=== PATIENT | female | born 1980 | race Hispanic/Latino ===

== ENCOUNTER 2019-12-09 13:15 | Emergency (ER) | payer BC, OTHER ==
[2019-12-09] MEDS ORDERED: NA CHLORIDE 0.9% 2,000 ML ONE (13:34)
[2019-12-09] MEDS ORDERED: NA CHLORIDE 0.9% 1,000 ML ONE ×4 (13:34→16:54)
[2019-12-09 14:10] LABS: Absolute Lymphocytes (CBC) 1.8 K/uL (0.7-4.9); Basophils % 0.3 % (0-1.3); Hematocrit 25.4 % (36.0-45.0); Lymphocytes % 21.4 % (15.3-44.8); MPV 8.7 fL (7.6-11.3)
[2019-12-09 14:31] LABS: Urine Blood NEGATIVE (NEG); Urine Glucose NEGATIVE (NEG); Urine Protein NEGATIVE (NEG); Urine Specific Gravity >1.030 (1.005-1.030); Urine pH 5.5 (5.0-7.0)
[2019-12-09 14:38] LABS: BUN Blood Urea Nitrogen 24 mg/dL (7-18); Bicarbonate 24 mmol/L (21-32); Glucose Level 119 mg/dL (74-106); Potassium 4.2 mmol/L (3.5-5.1); Sodium Level 140 mmol/L (136-145)
[2019-12-09] MEDS ORDERED: ACETAMINOPHEN 325 MG TABLET ONE (16:56)
--- NOTE | 2019-12-09 19:08 | ER ---
Nurse's Notes [facility] Name: Valencia Hilliard Age: 39 yrs Sex: Female : 1980 Arrival Date: 12/09/2019 Time: 13:19 Bed 5 Private MD: Diagnosis: Near Syncope;Orthostatic hypotension Presentation: 12/08 13:20 Chief complaint: EMS states: Toned out by pt for lightheadedness on standing x 2 days, jl7 initial EMS BP 120/60, upon standing systolic was 90. Coronavirus screen: Proceed with normal triage. Patient denies a cough. Patient denies shortness of breath or difficulty breathing. Patient denies measured and/or subjective temperature greater than 100.4F prior to today's visit. Patient denies travel on a cruise ship or to a country the [facility] currently lists as an affected area. Patient denies contact with known and/or suspected case of COVID-19. Ebola Screen: No symptoms or risks identified at this time. Initial Sepsis Screen: Does the patient meet any 2 criteria? No. Patient's initial sepsis screen is negative. Does the patient have a suspected source of infection? No. Patient's initial sepsis screen is negative. Risk Assessment: Do you want to hurt yourself or someone else? Patient reports no desire to harm self or others. Onset of symptoms was December 08, 2019. Care prior to arrival: Medication(s) given: Normal saline infusion, 500 mL, IV initiated. 20 GA, in the left antecubital area. 13:20 Method Of Arrival: EMS: [facility] jl7 13:20 Acuity: OTONIEL 3 jl7 Triage Assessment: 14:06 General: Appears in no apparent distress. uncomfortable, Behavior is calm, cooperative, jl7 appropriate for age. Pain: Denies pain. 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 - Social history:: Smoking status: Patient denies any tobacco usage or history of. Screenin:07 Abuse screen: Denies threats or abuse. Denies injuries from another. Nutritional jl7 screening: No deficits noted. Tuberculosis screening: No symptoms or risk factors identified. Fall Risk IV access (20 points). Total Collazo Fall Scale indicates No Risk (0-24 pts). Assessment: 13:45 General: Appears in no apparent distress. uncomfortable, Behavior is calm, cooperative, jl7 appropriate for age. Pain: Denies pain. Neuro: Level of Consciousness is awake, alert, obeys commands, Oriented to person, place, time, situation. Cardiovascular: Reports lightheadedness, Patient's skin is warm and dry. Respiratory: Airway is patent Respiratory effort is even, unlabored, Respiratory pattern is regular, symmetrical. Derm: Skin is pink, warm \T\ dry. 14:11 Reassessment: Pt's Geoff Hilliard, . jl7 15:00 Reassessment: Patient appears in no apparent distress at this time. No changes from jl7 previously documented assessment. Patient and/or family updated on plan of care and expected duration. Pain level reassessed. Patient is alert, oriented x 3, equal unlabored respirations, skin warm/dry/pink. 16:53 Reassessment: Patient appears in no apparent distress at this time. Patient and/or jl7 family updated on plan of care and expected duration. Pain level reassessed. Patient is alert, oriented x 3, equal unlabored respirations, skin warm/dry/pink. reports MAYO, rated 5/10, ERD notified, see MAR for orders Patient states feeling better. 19:10 Reassessment: Patient and/or family updated on plan of care and expected duration. Pain ea level reassessed. Patient is alert, oriented x 3, equal unlabored respirations, skin warm/dry/pink. Pt taken to CT. Vital Signs: 13:20 BP 115 / 77; Pulse 118; Resp 19 S; Temp 98.9(O); Pulse Ox 100% on R/A; jl7 13:54 BP 110 / 69 RA Supine; Pulse 98; Resp 19 S; Pulse Ox 100% on R/A; jl7 13:56 BP 95 / 66 Standing; Pulse 129; jl7 15:15 BP 102 / 61 Supine; Pulse 92; Resp 15; Pulse Ox 98% ; jl7 15:16 BP 94 / 45 Standing; Pulse 111; jl7 15:18 BP 85 / 49 Standing; Pulse 105; jl7 15:32 BP 106 / 75; Pulse 98; Resp 19; Pulse Ox 100% ; jl7 16:00 BP 96 / 42; Pulse 87; Resp 17; Pulse Ox 100% ; jl7 16:30 BP 99 / 45; Pulse 88; Resp 16; Pulse Ox 100% ; jl7 17:00 BP 104 / 59; Pulse 89; Resp 15; Pulse Ox 100% ; jl7 17:18 BP 99 / 57; Pulse 97; Resp 17; Pulse Ox 100% ; jl7 18:21 BP 106 / 58; Pulse 91; Resp 17; Pulse Ox 100% ; jl7 19:00 BP 96 / 60; Pulse 96; Resp 18; Pulse Ox 100% on R/A; ea ED Course: 13:19 Patient arrived in ED. jl7 13:22 Shun Gee MD is Attending Physician. kdr 13:23 Triage completed. jl7 13:23 Arm band placed on right wrist. jl7 13:30 Maintain EMS IV. Dressing intact. Good blood return noted. Site clean \T\ dry. Gauge \T\ jl 7 site: 20 left AC. 13:30 Initial lab(s) drawn, by me, sent to lab. jl7 13:53 Uziel Ferrell RN is Primary Nurse. jl7 14:07 Patient has correct armband on for positive identification. Placed in gown. Bed in low jl7 position. Call light in reach. Side rails up X2. Pulse ox on. NIBP on. 19:04 Viktoria Francis FNP-C is PHCP. kb 19:23 CT Head Brain wo Cont In Process Unspecified. EDMS Administered Medications: 14:03 Drug: NS 0.9% 1000 ml Route: IV; Rate: 1 bolus; Site: left antecubital; jl7 15:20 Follow up: Response: No adverse reaction; IV Status: Completed infusion; IV Intake: jl7 1000ml 15:32 Drug: NS 0.9% 1000 ml Route: IV; Rate: 1 bolus; Site: left antecubital; jl7 16:30 Follow up: Response: No adverse reaction; IV Status: Completed infusion; IV Intake: jl7 1000ml 16:50 Drug: NS 0.9% 1000 ml Route: IV; Rate: 1 bolus; Site: left antecubital; jl7 16:50 Drug: Tylenol 650 mg Route: PO; Intake: 15:20 IV: 1000ml; Total: 1000ml. 7 16:30 IV: 1000ml; Total: 2000ml. Outcome: 19:07 Discharge ordered by . baron 20:10 Patient left the ED. jd3 Signatures: Dispatcher [employer] EDMS Viktoria Francis, COOK BOX FILLER-C COOK BOX FILLER-CkShun Johnson MD MD kdr Leal, Jahala, RN RN jl7 Jaylin Do RN RN ea Davies, Jonathon, RN RN jd3 Corrections: (The following items were deleted from the chart) 15:32 15:32 NS 0.9% 1000 ml IV at 1 bolus in right upper arm jl7
--- NOTE | 2019-12-09 19:08 | EDPHYS ---
Physician Documentation [facility] Name: Valencia Hilliard Age: 39 yrs Sex: Female : 1980 Arrival Date: 12/09/2019 Time: 13:19 Bed 5 Private MD: ED Physician Shun Gee HPI: 12/09 08:27 This 39 yrs old Female presents to ER via EMS with complaints of Lightheaded. kdr 08:27 The patient has experienced near-syncope, felt faint, felt generally weak. Onset: The kdr symptoms/episode began/occurred gradually, 2 day(s) ago. Duration: The patient has had multiple episodes. Context: the episode(s) was witnessed, by no one, occurred at home, occurred while the patient was standing, Just prior to the episode the patient experienced no apparent symptoms, The patient states the when she stands she feels light headed and feels like she wants to pass out. She sits down before it gets to bad. She has not had this before but has felt light headed. Associated injury: The patient did not suffer any apparent associated injury. Associated signs and symptoms: The patient has no apparent associated signs or symptoms. Current symptoms: Currently, the patient is not experiencing any symptoms, Except when standing up. . The patient has not experienced similar symptoms in the past. The patient has not recently seen a physician. The patient is noted to be tachycardic and her BP is noted to drop to low 90's. 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 - Social history:: Smoking status: Patient denies any tobacco usage or history of. ROS: 12/09 08:27 Constitutional: Negative for fever, chills, and weight loss, Eyes: Negative for injury, kdr pain, redness, and discharge, ENT: Negative for injury, pain, and discharge, Neck: Negative for injury, pain, and swelling, Cardiovascular: Negative for chest pain, palpitations, and edema, Respiratory: Negative for shortness of breath, cough, wheezing, and pleuritic chest pain, Abdomen/GI: Negative for abdominal pain, nausea, vomiting, diarrhea, and constipation, Back: Negative for injury and pain, : Negative for injury, bleeding, discharge, and swelling, MS/Extremity: Negative for injury and deformity, Skin: Negative for injury, rash, and discoloration, Psych: Negative for depression, anxiety, suicide ideation, homicidal ideation, and hallucinations, Allergy/Immunology: Negative for hives, rash, and allergies, Endocrine: Negative for neck swelling, polydipsia, polyuria, polyphagia, and marked weight changes, Hematologic/Lymphatic: Negative for swollen nodes, abnormal bleeding, and unusual bruising. Neuro: Positive for dizziness, near syncope, weakness, Only when standing. Exam: 08:27 Constitutional: This is a well developed, well nourished patient who is awake, alert, kdr and in no acute distress. Head/Face: Normocephalic, atraumatic. Eyes: Pupils equal round and reactive to light, extra-ocular motions intact. Lids and lashes normal. Conjunctiva and sclera are non-icteric and not injected. Cornea within normal limits. Periorbital areas with no swelling, redness, or edema. Neck: Trachea midline, no thyromegaly or masses palpated, and no cervical lymphadenopathy. Supple, full range of motion without nuchal rigidity, or vertebral point tenderness. No Meningismus. Chest/axilla: Normal chest wall appearance and motion. Nontender with no deformity. No lesions are appreciated. Cardiovascular: Regular rate and rhythm with a normal S1 and S2. No gallops, murmurs, or rubs. Normal PMI, no JVD. No pulse deficits. Respiratory: Lungs have equal breath sounds bilaterally, clear to auscultation and percussion. No rales, rhonchi or wheezes noted. No increased work of breathing, no retractions or nasal flaring. Abdomen/GI: Soft, non-tender, with normal bowel sounds. No distension or tympany. No guarding or rebound. No evidence of tenderness throughout. Back: No spinal tenderness. No costovertebral tenderness. Full range of motion. Skin: Warm, dry with normal turgor. Normal color with no rashes, no lesions, and no evidence of cellulitis. MS/ Extremity: Pulses equal, no cyanosis. Neurovascular intact. Full, normal range of motion. Neuro: Awake and alert, GCS 15, oriented to person, place, time, and situation. Cranial nerves II-XII grossly intact. Motor strength 5/5 in all extremities. Sensory grossly intact. Cerebellar exam normal. Normal gait. Psych: Awake, alert, with orientation to person, place and time. Behavior, mood, and affect are within normal limits. Vital Signs: 12/08 13:20 BP 115 / 77; Pulse 118; Resp 19 S; Temp 98.9(O); Pulse Ox 100% on R/A; jl7 13:54 BP 110 / 69 RA Supine; Pulse 98; Resp 19 S; Pulse Ox 100% on R/A; jl7 13:56 BP 95 / 66 Standing; Pulse 129; jl7 15:15 BP 102 / 61 Supine; Pulse 92; Resp 15; Pulse Ox 98% ; jl7 15:16 BP 94 / 45 Standing; Pulse 111; jl7 15:18 BP 85 / 49 Standing; Pulse 105; jl7 15:32 BP 106 / 75; Pulse 98; Resp 19; Pulse Ox 100% ; jl7 16:00 BP 96 / 42; Pulse 87; Resp 17; Pulse Ox 100% ; jl7 16:30 BP 99 / 45; Pulse 88; Resp 16; Pulse Ox 100% ; jl7 17:00 BP 104 / 59; Pulse 89; Resp 15; Pulse Ox 100% ; jl7 17:18 BP 99 / 57; Pulse 97; Resp 17; Pulse Ox 100% ; jl7 18:21 BP 106 / 58; Pulse 91; Resp 17; Pulse Ox 100% ; jl7 19:00 BP 96 / 60; Pulse 96; Resp 18; Pulse Ox 100% on R/A; ea MDM: 19:07 Patient medically screened. kdr 19:50 Data reviewed: vital signs, nurses notes. Data interpreted: Pulse oximetry: on room air kb is 100 %. Interpretation: normal. Counseling: I had a detailed discussion with the patient and/or guardian regarding: the historical points, exam findings, and any diagnostic results supporting the discharge/admit diagnosis, lab results, radiology results, the need for outpatient follow up, a family practitioner, to return to the emergency department if symptoms worsen or persist or if there are any questions or concerns that arise at home. 12/08 13:52 Order name: CBC with Diff; Complete Time: 15:15 kdr 12/08 13:52 Order name: Chem 7; Complete Time: 15:15 kdr 12/08 14:21 Order name: Urine Dipstick--Ancillary (enter results); Complete Time: 15:15 em1 12/08 14:21 Order name: Urine --Ancillary (enter results); Complete Time: 15:15 em1 12/08 15:24 Order name: D-Dimer; Complete Time: 16:04 jl7 12/08 19:05 Order name: CT Head Brain wo Cont; Complete Time: 19:50 kdr 12/08 13:52 Order name: Orthostatic Blood Pressure; Complete Time: 14:03 kdr 12/08 13:52 Order name: Urine Dipstick-Ancillary (obtain specimen); Complete Time: 14:19 kdr Administered Medications: 14:03 Drug: NS 0.9% 1000 ml Route: IV; Rate: 1 bolus; Site: left antecubital; 7 15:20 Follow up: Response: No adverse reaction; IV Status: Completed infusion; IV Intake: jl7 1000ml 15:32 Drug: NS 0.9% 1000 ml Route: IV; Rate: 1 bolus; Site: left antecubital; 7 16:30 Follow up: Response: No adverse reaction; IV Status: Completed infusion; IV Intake: jl7 1000ml 16:50 Drug: NS 0.9% 1000 ml Route: IV; Rate: 1 bolus; Site: left antecubital; 7 16:50 Drug: Tylenol 650 mg Route: PO; 7 Disposition: 12/09 08:36 Co-signature as Attending Physician, Shun Gee MD I agree with the assessment and [facility] plan of care. Disposition: 12/09/19 19:07 Discharged to Home. Impression: Near Syncope, Orthostatic hypotension. - Condition is Stable. - Discharge Instructions: Hypotension, Near-Syncope. - Medication Reconciliation Form, Thank You Letter, Antibiotic Education, Prescription Opioid Use form. - Follow up: Private Physician; When: 2 - 3 days; Reason: If symptoms return, Further diagnostic work-up, Recheck today's complaints, Continuance of care, Re-evaluation by your physician. - Problem is new. - Symptoms have improved. Signatures: Dispatcher [employer] EDViktoria Graves, ELECTROMAGNET CRANE OPERATOR-C JOE-Shun Beal MD MD kdr Uziel Ferrell RN RN jl7 Feng Riojas, RN RN jd3 Corrections: (The following items were deleted from the chart) 12/08 19:08 19:07 12/09/2019 19:07 Discharged to Home. Impression: Near Syncope. Condition is kdr Stable. Forms are Medication Reconciliation Form, Thank You Letter, Antibiotic Education, Prescription Opioid Use. Follow up: Private Physician; When: 2 - 3 days; Reason: If symptoms return, Further diagnostic work-up, Recheck today's complaints, Continuance of care, Re-evaluation by your physician. Problem is new. Symptoms have improved. kdr 20:10 19:08 12/09/2019 19:07 Discharged to Home. Impression: Near Syncope; Orthostatic jd3 hypotension. Condition is Stable. Forms are Medication Reconciliation Form, Thank You Letter, Antibiotic Education, Prescription Opioid Use. Follow up: Private Physician; When: 2 - 3 days; Reason: If symptoms return, Further diagnostic work-up, Recheck today's complaints, Continuance of care, Re-evaluation by your physician. Problem is new. Symptoms have improved. kdr
--- NOTE | 2019-12-09 19:38 | RAD REPORT ---
EXAM DESCRIPTION: CT - Head Brain Wo Cont - 12/09/2019 7:23 pm CLINICAL HISTORY: Near Syncope, headache history COMPARISON: <Comparisons> TECHNIQUE: Axial 5 mm thick images of the head were obtained without IV contrast. All CT scans are performed using dose optimization technique as appropriate and may include automated exposure control or mA/KV adjustment according to patient size. FINDINGS: No intracranial hemorrhage, mass, edema or shift of mid-line structures. No acute infarcti on changes seen. No abnormal extra-axial fluid collections. Ventricles are normal. Mastoid air cells and visualized portions of the paranasal sinuses are clear. No acute bony findings. IMPRESSION: Negative non-contrast CT head examination.
[2019-12-09 20:16] VITALS: TEMP 98.9
[2019-12-09 20:24] VITALS: O2SAT 100
[2019-12-09 20:34] VITALS: BP 96/60
== END 2019-12-09 20:10 | disposition home or self-care (01) ==
LOC: ER 13:15
DX: I95.1 Orthostatic hypotension (principal); Z88.8 Allergy status to other drugs, medicaments and biological substances
CPT/HCPCS: 96361; 85025; 80048; 36415; 81025; 85379; 81003; 70450; 96360; 99284; J7030 ×5